=== PATIENT | female | born 1985 | race African-American/Black ===

== ENCOUNTER → 2018-07-28 | Outpatient (CLI) | payer MEDICAID | LOC: LAB.R 08:00 | PROVIDERS: ATTEND Nurse Practitioner Family | DX: Z53.9 Procedure and treatment not carried out, unspecified reason (principal) ==

== ENCOUNTER 2018-08-25 08:00 | Outpatient (CLI) | payer MEDICAID | END 2018-08-25 08:01 | disposition home or self-care (01) | LOC: LAB.R 08:00 | PROVIDERS: ATTEND Nurse Practitioner Family | DX: B35.1 Tinea unguium (principal) ==

== ENCOUNTER 2020-05-26 13:50 | Emergency (ER) | payer MEDICAID ==
[2020-05-26 14:01] VITALS: BP 126/69
--- NOTE | 2020-05-26 14:23 | ED Physician Documentation ---
History of Present Illness - Stated complaint Stated Complaint: BLEEDING - Chief complaint Chief Complaint: General - History obtained from History obtained from: Patient - History of Present Illness Timing: Today Pain level max: 0 Pain level now: 0 - Additonal information Additional information: 35-year-old female states that she is approximately 7 weeks . She states that she started having vaginal bleeding today. No cramping. No pain. No fevers. No vomiting. No diarrhea. 2 para 1. Review of Systems Ten Systems: 10 systems reviewed and negative Constitutional: denies: Fever, Chills Respiratory: denies: Cough GI: denies: Nausea, Vomiting, Diarrhea : denies: Dysuria, Frequency, Hesitancy Skin: denies: Rash Musculoskeletal: denies: Neck pain, Back pain Neurologic: denies: Headache PD PAST MEDICAL HISTORY - Past Medical History Past Medical History: No - Past Surgical History Past Surgical History: No - Allergies Allergies/Adverse Reactions: Allergies Allergy/AdvReac Type Severity Reaction Status Date / Time No Known Drug Allergies Allergy Verified 05/26/20 14:00 - Living Situation Living Situation: reports: With family Living Arrangement: reports: At home - Family History Family history: reports: Non contributory PD ED PE NORMAL - Vitals Vital signs reviewed: Yes - General General: Alert and oriented X 3, No acute distress, Well developed/nourished - HEENT HEENT: Moist mucous membranes - Neck Neck: Supple, no meningeal sign - Cardiac Cardiac: RRR, Strong equal pulses - Respiratory Respiratory: No respiratory distress, Clear bilaterally - Abdomen Abdomen: Soft, Non tender, Non distended - Female Female : Pt declined - Back Back: No spinal TTP - Derm Derm: Warm and dry - Extremities Extremities: No edema, No calf tenderness / cord - Neuro Neuro: Alert and oriented X 3 - Psych Psych: Normal mood, Normal affect Results - Vitals Vitals: Vital Signs - 24 hr 05/26/20 13:59 Temperature 36.6 C Heart Rate 66 Respiratory 20 Rate Blood Pressure 126/69 O2 Saturation 100 Oxygen O2 Source Room air - Labs Labs: Laboratory Tests 05/26/20 05/26/20 05/26/20 14:08 14:18 14:18 WBC 7.5 RBC 4.25 Hgb 12.0 Hct 36.9 L MCV 86.8 MCH 28.2 MCHC 32.5 RDW 13.0 Plt Count 291 MPV 9.7 Neut # (Auto) 4.5 Lymph # (Auto) 2.2 Kaufman # (Auto) 0.4 Eos # (Auto) 0.3 Baso # (Auto) 0.0 Absolute Nucleated RBC 0.00 Nucleated RBC % 0.0 PT 11.6 INR 1.0 APTT 30.8 Sodium Potassium Chloride Carbon Dioxide Anion Gap BUN Creatinine Estimated GFR (MDRD) Glucose Calcium Total Bilirubin AST ALT Alkaline Phosphatase Total Protein Albumin Globulin Albumin/Globulin Ratio Lipase Serum HCG, Qual HCG, Quant Urine Color YELLOW Urine Clarity CLEAR Urine pH 6.0 Ur Specific [place] 1.025 Urine Protein NEGATIVE Urine Glucose (UA) NEGATIVE Urine Ketones TRACE Urine Occult Blood MODERATE H Urine Nitrite NEGATIVE Urine Bilirubin NEGATIVE Urine Urobilinogen 0.2 (NORMAL) Ur Leukocyte Esterase NEGATIVE Urine RBC 6-10 H Urine WBC 0-3 Ur Squamous Epith Cells FEW Squamous Urine Bacteria Few Ur Microscopic Review INDICATED Urine Culture Comments NOT INDICATED Blood Type 05/26/20 05/26/20 05/26/20 14:18 14:18 14:18 WBC RBC Hgb Hct MCV MCH MCHC RDW Plt Count MPV Neut # (Auto) Lymph # (Auto) Kaufman # (Auto) Eos # (Auto) Baso # (Auto) Absolute Nucleated RBC Nucleated RBC % PT INR APTT Sodium 133 L Potassium 3.8 Chloride 98 L Carbon Dioxide 24 Anion Gap 11.0 BUN 16 Creatinine 0.8 Estimated GFR (MDRD) 100 Glucose 92 Calcium 9.3 Total Bilirubin 0.9 AST 18 ALT 11 Alkaline Phosphatase 37 L Total Protein 7.4 Albumin 4.6 Globulin 2.8 Albumin/Globulin Ratio 1.6 Lipase 51 Serum HCG, Qual POSITIVE HCG, Quant Urine Color Urine Clarity Urine pH Ur Specific [place] Urine Protein Urine Glucose (UA) Urine Ketones Urine Occult Blood Urine Nitrite Urine Bilirubin Urine Urobilinogen Ur Leukocyte Esterase Urine RBC Urine WBC Ur Squamous Epith Cells Urine Bacteria Ur Microscopic Review Urine Culture Comments Blood Type O POSITIVE 05/26/20 14:18 WBC RBC Hgb Hct MCV MCH MCHC RDW Plt Count MPV Neut # (Auto) Lymph # (Auto) Kaufman # (Auto) Eos # (Auto) Baso # (Auto) Absolute Nucleated RBC Nucleated RBC % PT INR APTT Sodium Potassium Chloride Carbon Dioxide Anion Gap BUN Creatinine Estimated GFR (MDRD) Glucose Calcium Total Bilirubin AST ALT Alkaline Phosphatase Total Protein Albumin Globulin Albumin/Globulin Ratio Lipase Serum HCG, Qual HCG, Quant 107138.00 Urine Color Urine Clarity Urine pH Ur Specific [place] Urine Protein Urine Glucose (UA) Urine Ketones Urine Occult Blood Urine Nitrite Urine Bilirubin Urine Urobilinogen Ur Leukocyte Esterase Urine RBC Urine WBC Ur Squamous Epith Cells Urine Bacteria Ur Microscopic Review Urine Culture Comments Blood Type - Rads (name of study) OB US Radiology: Prelim report reviewed, EMP read contemporaneously, See rad report (1. Single live intrauterine with ultrasound gestational age of 8 weeks 1 day corresponding to ultrasound BUD of 01/04/2021. 2. Small subchorionic hemorrhage. ) PD MEDICAL DECISION MAKING - ED course Complexity details: reviewed results, re-evaluated patient, considered differential, d/w patient ED course: 35-year-old female with first trimester vaginal bleeding. Appears to have a small subchorionic hemorrhage. She states that her bleeding resolved upon arrival to the emergency department. She has an intrauterine on ultrasound with a heart rate. Patient counseled regarding signs and symptoms for which I believe and urgent re-evaluation would be necessary. Patient with good understanding of and agreement to plan and is comfortable going home at this time This document was made in part using voice recognition software. While efforts are made to proofread this document, sound alike and grammatical errors may o ccur. Departure - Departure Disposition: 01 Home, Self Care Clinical Impression: Vaginal bleeding affecting early Subchorionic hemorrhage in first trimester Qualifiers: Fetus number: single or unspecified fetus Qualified Code(s): O41.8X10 - Other specified disorders of amniotic fluid and membranes, first trimester, not applicable or unspecified Condition: Good Instructions: ED Miscarriage Poss Follow-Up: Vicki Corbett ARNP [Primary Care Provider] - Within 1 week Comments: You appear to have an intrauterine today of approximately 8 weeks and 1 day. You have a small subchorionic hemorrhage, and this is not uncommon early in and may be responsible for the bleeding. Follow-up with your doc tor next week for repeat evaluation. Return if you worsen Discharge Date/Time: 05/26/20 15:15
[2020-05-26 14:24] LABS: BASOPHILS % (AUTO) 0.4 %; EOSINOPHILS # (AUTO) 0.3 10^3/uL (0.0-0.7); EOSINOPHILS % (AUTO) 4.6 %; LYMPHOCYTES # (AUTO) 2.2 10^3/uL (1.5-3.5); LYMPHOCYTES % (AUTO) 29.5 %; MEAN CORPUSCULAR HEMOGLOBIN 28.2 pg (27.0-31.0); MEAN CORPUSCULAR HGB CONC 32.5 g/dL (32.0-36.0); MEAN CORPUSCULAR VOLUME 86.8 fL (81.0-99.0); MEAN PLATELET VOLUME 9.7 fL (7.9-10.8); MONOCYTES # (AUTO) 0.4 10^3/uL (0.0-1.0); MONOCYTES % (AUTO) 5.5 %; NEUTROPHILS # (AUTO) 4.5 10^3/uL (1.5-6.6); NEUTROPHILS % (AUTO) 59.9 %; PLT - PLATELET COUNT 291 10^3/uL (130-450); RED BLOOD COUNT 4.25 10^6/uL (4.20-5.40); WHITE BLOOD COUNT 7.5 x10^3/uL (4.8-10.8)
[2020-05-26 14:30] LABS: BILIRUBIN,URINE NEGATIVE (NEGATIVE); GLUCOSE, URINE (UA) NEGATIVE (NEGATIVE); KETONES,URINE (UA) TRACE mg/dL (NEGATIVE); LEUKOCYTE ESTERASE, URINE NEGATIVE (NEGATIVE); NITRITE,URINE NEGATIVE (NEGATIVE); OCCULT BLOOD,URINE MODERATE (NEGATIVE); PROTEIN,URINE NEGATIVE (NEGATIVE); UROBILINOGEN,URINE 0.2 (NORMAL) E.U./dL (NORMAL)
[2020-05-26 14:32] LABS: CLARITY,URINE CLEAR (CLEAR)
[2020-05-26 14:33] LABS: PT - PROTHROMBIN TIME 11.6 secs (9.9-12.6)
[2020-05-26 14:37] LABS: ALBUMIN 4.6 g/dL (3.2-5.5); ALBUMIN/GLOBULIN RATIO 1.6 (1.0-2.2); BILIRUBIN,TOTAL 0.9 mg/dL (0.2-1.0); CALCIUM 9.3 mg/dL (8.5-10.3); CREATININE 0.8 mg/dL (0.4-1.0); TOTAL PROTEIN 7.4 g/dL (6.7-8.2)
[2020-05-26 14:41] LABS: PARTIAL THROMBOPLASTIN TIME 30.8 secs (24.9-33.3)
[2020-05-26 14:42] LABS: BACTERIA,URINE Few /HPF (None Seen); SQUAMOUS EPITHELIAL CELL,UR FEW Squamous (<= Few)
[2020-05-26 15:06] LABS: HCG,QUALITATIVE BLOOD POSITIVE
--- NOTE | 2020-05-26 15:15 | Ultrasound Report ---
PROCEDURE: OB First Trimester INDICATIONS: 7 weeks preg, vag bleed OUTSIDE/PRIOR DATING DATA: Last menstrual period (LMP): 04/01/2020. LMP-based estimated date of delivery (BUD): 01/06/2021. First dating scan (date and location): 05/26/2020. Estimated date of delivery (BUD) from first dating scan: 01/04/2021. TECHNIQUE: Real-time scanning was performed of the fetus and maternal pelvic organs, with image documentation. COMPARISON: None FINDINGS: Embryo: Single live intrauterine is identified with crown-rump length measuring 1.7 cm cor responding to 8 weeks 1 day. Heart rate is present at 153 bpm. There is a focus of apparent subchorio rickie hemorrhage superior to the gestational sac measuring 16 x 3 x 19 mm. Measurement variability in dating: +/- 4 weeks by LMP, +/- 7 days by mean sac diameter (use before 6 weeks gestation if crown-rump length not able to be measured), +/- 5 days by crown-rump length (6-12 weeks gestation). Maternal organs: Ovaries demonstrate a left corpus luteal cyst.. Limited images through the kidneys demonstrate no hydronephrosis. IMPRESSION: 1. Single live intrauterine with ultrasound gestational age of 8 weeks 1 day corresponding to ultrasound BUD of 01/04/2021. 2. Small subchorionic hemorrhage. Reviewed by: Kari Culver MD on 05/26/2020 3:14 PM PDT Approved by: Kari Culver MD on 05/26/2020 3:14 PM PDT Station ID: [id number]
== END 2020-05-26 15:15 | disposition home or self-care (01) ==
LOC: ED 13:50
DX: O20.9 Hemorrhage in early pregnancy, unspecified (principal); O41.8X10 Other specified disorders of amniotic fluid and membranes, first trimester, not applicable or unspecified; Z3A.08 8 weeks gestation of pregnancy
CPT/HCPCS: 36415; 76801; 80053; 81001; 81003; 83690; 84702; 84703; 85025; 85610; 85730; 86900; 86901; 87086; 99284; 99285

== ENCOUNTER 2020-05-31 17:46 | Outpatient (CLI) | payer MEDICAID | END 2020-05-31 17:47 | disposition home or self-care (01) | LOC: LAB.S 17:46 | PROVIDERS: ATTEND Registered Nurse | DX: O20.9 Hemorrhage in early pregnancy, unspecified (principal); Z3A.00 Weeks of gestation of pregnancy not specified | CPT/HCPCS: 36415; 84702 ==

== ENCOUNTER 2020-12-23 15:50 | Inpatient (IN) | payer OTHER, MEDICAID ==
[2020-12-23] MEDS ORDERED: OXYTOCIN/SODIUM CHLORIDE 500 ML IV PRN (16:20)
[2020-12-23] MEDS ORDERED: miSOPROStoL 200 MCG TABLET BC PRN (16:20)
[2020-12-23] MEDS ORDERED: OXYTOCIN 10 UNIT/ML VIAL IM PRN (16:20)
[2020-12-23] MEDS ORDERED: CARBOPROST TROMETHAMINE 250 MCG/ML AMP IM PRN (16:20)
[2020-12-23] MEDS ORDERED: TRANEXAMIC ACID IN NACL 1,000 MG/100 ML BAG IV PRN (16:20)
[2020-12-23] MEDS ORDERED: SODIUM CHLORIDE FLUSH 0.9% 10 ML SYRINGE IVP PRN (16:20)
[2020-12-23] MEDS ORDERED: LIDOCAINE-MPF 1% 30 ML VIAL ID PRN (16:20)
[2020-12-23] MEDS ORDERED: METHYLERGONOVINE 0.2 MG/ML VIAL IM PRN (16:20)
[2020-12-23] MEDS ORDERED: fentaNYL 100 MCG/2 ML VIAL IVP SCH (16:31)
[2020-12-23] MEDS ORDERED: ROPIVACAINE 0.2% 200 MG/100 ML BAG EP ONE (16:41)
[2020-12-23] MEDS ORDERED: ROPIVACAINE 0.2% 200 MG/100 ML BAG EP PRN (16:45)
[2020-12-23 16:48] LABS: BASOPHILS % (AUTO) 0.4 %; EOSINOPHILS # (AUTO) 0.2 10^3/uL (0.0-0.7); EOSINOPHILS % (AUTO) 2.7 %; HGB - HEMOGLOBIN 11.7 g/dL (12.0-16.0); LYMPHOCYTES # (AUTO) 2.4 10^3/uL (1.5-3.5); LYMPHOCYTES % (AUTO) 28.8 %; MEAN CORPUSCULAR HEMOGLOBIN 28.3 pg (27.0-31.0); MEAN CORPUSCULAR HGB CONC 31.6 g/dL (32.0-36.0); MEAN CORPUSCULAR VOLUME 89.4 fL (81.0-99.0); MONOCYTES # (AUTO) 0.5 10^3/uL (0.0-1.0); NEUTROPHILS % (AUTO) 61.5 %; PLT - PLATELET COUNT 214 10^3/uL (130-450); RED BLOOD COUNT 4.14 10^6/uL (4.20-5.40); RED CELL DISTRIBUTION WIDTH 13.7 % (12.0-15.0); WHITE BLOOD COUNT 8.2 x10^3/uL (4.8-10.8)
[2020-12-23] MEDS ORDERED: LACTATED RINGERS 1,000 ML IV SCH (17:00)
[2020-12-23] MEDS ORDERED: SODIUM CHLORIDE FLUSH 0.9% 10 ML SYRINGE IVP SCH (17:00)
--- NOTE | 2020-12-23 17:43 | DELIVERY NOTE ---
Delivery Note - Labor Labor: positive: Spontaneous - Delivery Method Delivery Method: positive: Spontaneous vaginal delivery - Presentation Presentation: positive: Vertex - Nuchal Cord Nuchal Cord: positive: Present (Tight; clamped and cut on perineum) - Amniotic Fluid Description Amniotic Fluid Description: positive: Clear - Episiotomy Type Episiotomy Type: positive: None - Laceration Laceration: positive: Labial (Right minora), Other (Just below clitoris at 6:00 not involving labia) - Suture Suture Type: positive: Vicryl Suture Size: positive: 3-0 - Delivery Outcome Delivery Outcome: positive: Livebirth - Custar Custar: positive: Placed in direct skin contact with mother, Suctioned, Bulb syringe, Stimulated, Warmed, [place] used, Warmer used Custar sex: positive: Female - Cord Cord: positive: 3 vessels - Placenta Placenta: positive: Intact, Spontaneous - Estimated Blood Loss Estimated Blood Loss (in cc): 50 - Post Delivery Events Post Delivery Events: positive: No post delivery events - Delivery Comments (Free Text/Narrative) Delivery Comments (Free Text/Narrative): Patient arrived at 5cm, had had care at [facility] in [place]. Progressed quickly to complete while she was getting her epidural. SROM happened while the baby was . Tight nuchal cord cut on the perineum. Baby was placed on mom's abdomen for initial evaluation--tone remained poor and so she was brought to the warmer. Improved then without needing PPV. Baby with physical stigma of possible Down Syndrome--macroglossia and classic facial features are present. Peds called in and they are evaluating baby now. Placenta delivered without problems. Fundus firm and 1cm below the umbilicus. Will obtain pt's records from [facility]. Anticipate routine maternal care.
[2020-12-23] MEDS ORDERED: WITCH HAZEL/GLYCERIN 1 PAD TOP PRN (17:45)
[2020-12-23] MEDS ORDERED: diphenhydrAMINE 25 MG CAPSULE PO PRN (17:45)
[2020-12-23] MEDS ORDERED: ONDANSETRON ODT 4 MG TABLET TL PRN (17:45)
[2020-12-23] MEDS ORDERED: HYDROCORTISONE 1% CREAM 28 GM TUBE PR PRN (17:45)
[2020-12-23] MEDS ORDERED: ONDANSETRON 4 MG/2 ML VIAL IVP PRN ×2 (17:45→19:58)
[2020-12-23] MEDS ORDERED: SIMETHICONE CHEW 80 MG TABLET PO PRN (17:45)
--- NOTE | 2020-12-23 17:51 | HISTORY & PHYSICAL EXAMINATION ---
Admit History - Visit Reason Visit Reason: Contractions - Other Maternal History Other Maternal History: HPI: contractions started this morning. Thought about going back to [place] but didn't think that she would make it. [place] her Mother but she lives in [place] and all care has been with Dr. Guaman. 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 FH: no genetic issues, no anesthesia complications OB: records currently not available. BUD 01/03/21 per pt. Uncomplicated pregnancies per pt. Meds/Allgy - Allergies Allergies/Adverse Reactions: Allergies Allergy/AdvReac Type Severity Reaction Status Date / Time No Known Drug Allergies Allergy Verified 05/26/20 14:00 Physical - Other Notes Labor Progress Note/Additional Text: AVSS FHT 110 baseline, mod LTV, no accel, no decel SVE complete, BBOW at the introitus, vertex Plan for Labor - Plan For Labor I expect patient to be DC'd or transferred within 96 hours.: Yes Plan for Labor: 35yo at 38w3d by pt's reported BUD. Came to hospital at 5cm, received an epidural and delivered shortly after that. Mother is doing well but her baby has surprise Down Syndrome. Had care elsewhere. --Obtain records --Anticipate routine care --Support and education planned for baby's condition.
--- NOTE | 2020-12-23 19:57 | ANESTHESIA PROCEDURE NOTE ---
Anesthesia Epidural Template - Patient Report Patient Reports: positive: Pain controlled - Plan Plan: positive: Continue current management
[2020-12-23] MEDS ORDERED: NALBUPHINE 10 MG/ML AMP IVP PRN (19:58)
[2020-12-23] MEDS ORDERED: NALOXONE 0.4 MG/ML VIAL IVP PRN (19:58)
[2020-12-23] MEDS ORDERED: ePHEDrine 50 MG/ML VIAL IVP PRN (19:58)
[2020-12-23] MEDS ORDERED: METOCLOPRAMIDE 10 MG/2 ML VIAL IVP PRN (19:58)
[2020-12-23] MEDS ORDERED: diphenhydrAMINE INJ 50 MG/ML VIAL IVP PRN (19:58)
[2020-12-23] MEDS: ACETAMINOPHEN 500 MG TABLET PO SCH (20:42)
[2020-12-23] MEDS: IBUPROFEN 600 MG TABLET PO SCH (20:43)
[2020-12-23] MEDS: DOCUSATE SODIUM 100 MG CAPSULE PO SCH (20:43)
[2020-12-24] MEDS: IBUPROFEN 600 MG TABLET PO SCH ×6 (02:39→22:30)
[2020-12-24] MEDS: ACETAMINOPHEN 500 MG TABLET PO SCH ×3 (04:40→19:15)
[2020-12-24] MEDS: DOCUSATE SODIUM 100 MG CAPSULE PO SCH (08:45)
--- NOTE | 2020-12-24 17:32 | PROVIDER PROGRESS NOTE ---
Subjective - Subjective Subjective: S: feeling OK, no problems. Moderate cramping. Breasts oK. Eat, ambulate, urinate OK. No heavy bleeding. O: AVSS Alert, smiling, NAD Cuddling baby Abd soft, nt/nd Fundus firm, 2cm below U A/P: 35yo P2 PPD #1 s/p at term, uncomplicated maternal course -- care elsewhere, labs normal except for genetic screening and rub non- immune. Plan MMR --Pt had T21 diagnosed during , genetic counseling and education had been done. She relates that she didn't report this history yesterday because she was in so much pain and wasn't thinking well. Has f/u with genetics in [place] and has support. Objective - Vital Signs/Intake & Output Vital Signs: Vital Signs x48h Temp Pulse Resp BP BP Pulse Ox 12/24/20 16:10 98.8 F 74 18 132/74 H 97 12/24/20 11:40 98.6 F 71 18 118/77 100 Intake & Output: Intake & Output 12/21/20 12/22/20 12/23/20 12/24/20 23:59 23:59 23:59 23:59 Output Total 400 150 Balance -400 -150 - Lab Results Fish Bones: 12/23/20 16:40
[2020-12-25] MEDS: ACETAMINOPHEN 500 MG TABLET PO SCH ×2 (05:19→12:04)
[2020-12-25] MEDS: IBUPROFEN 600 MG TABLET PO SCH ×2 (05:21→12:04)
[2020-12-25] MEDS ORDERED: MEASLES,MUMPS & RUBELLA VACC 0.5 ML VIAL SUBQ ONE (08:17)
--- NOTE | 2020-12-25 08:29 | Discharge Plan ---
Discharge Plan Problem Reviewed?: Yes Disposition: Home, Self Care Condition: Good Prescriptions: Acetaminophen [Acetaminophen Extra Strength] 1,000 mg PO Q6H PRN #45 tab PRN Reason: Pain Docusate Sodium 100Mg Capsule [Colace 100Mg Capsule] 100 mg PO BID PRN #30 cap PRN Reason: to soften stool Ibuprofen [Motrin] 600 mg PO Q6H PRN #30 tab PRN Reason: Pain Diet: Regular Shower Restrictions: No Driving Restrictions: No Additional Instructions or Follow Up instructions: Nothing in the vagina for [address] Guaman this week in [place] as scheduled already. No Smoking: If you smoke, Please STOP! Call for help.
[2020-12-25 08:51] VITALS: BP 110/65
--- NOTE | 2020-12-25 09:11 | DISCHARGE SUMMARY ---
Physician: Bertha Norton MD DATE OF ADMISSION: 12/23/2020 DATE OF DISCHARGE: 12/25/2020 ADMISSION DIAGNOSIS: Spontaneous active labor at term. DISCHARGE DIAGNOSES: 1. Status post vaginal delivery at term. 2. Rubella nonimmune. 3. Delivered an with Down syndrome. PROCEDURE: On 12/23/2020, spontaneous vaginal delivery of a liveborn female. EBL was 50 mL. She had a right labial and a periclitoral laceration that were repaired. HOSPITAL COURSE: Patient was admitted in active spontaneous labor and delivered about an hour after arrival. She [facility]. At delivery, her baby was diagnosed with a stigmata of Down syndrome, and she was notified of this finding. Once her records were obtained, it was found that she was aware of this antepartum and had received genetic counseling. She also receiv ed a normal echo. She was bonding with her baby well and has plans to follow up with her heraclio ic counseling back in [place]. Otherwise, her course was unremarkable. She was requesting discharge home. She was eatin g, ambulating, urinating without difficulties. She did not have any heavy bleeding or severe pain. Her mood was good. She had chosen not to breastfeed. PHYSICAL EXAM: VITAL SIGNS: She was afebrile with normal vital signs. GENERAL: Alert and smiling, in no apparent distress, cuddling her baby. ABDOMEN: Soft, nontender, nondistended. Fundus firm, nontender, and at the umbilicus. DISCHARGE MEDICATIONS: Ibuprofen, Tylenol, and Colace. An MMR vaccination was given to the patient prior to discharge. FOLLOWUP: Follow up with her primary OB, Dr. Guaman, this week in [place]. PRECAUTIONS: Routine precautions given. DISPOSITION: Home. CONDITION: Good. TD: 12/25/2020 08:34
[2020-12-25] MEDS: DOCUSATE SODIUM 100 MG CAPSULE PO SCH (12:04)
--- NOTE | 2020-12-25 19:09 | Labor Flowsheet ---
Labor Flowsheet Datetime Report Generated by CPN: 12/25/2020 19:09 Datetime: 12/25/2020 08:05 VITAL SIGNS NBP Sys/Cassi/Mean (mmHg): 110 : 65 : 75 Pulse: 74 SpO2 (%): 96 Datetime: 12/23/2020 19:30 Anesthesia Comments: epidural catheter removed and was intact Datetime: 12/23/2020 18:16 VAGINAL EXAM Membranes Ruptured Date/Time: 12/23/2020 17:00 Membranes Rupture Method: Spontaneous Amniotic Fluid Color: Clear Amniotic Fluid Amount: Moderate Amniotic Fluid Odor: Normal Datetime: 12/23/2020 18:15 Stage of : Recovery Datetime: 12/23/2020 18:00 Respirations: 16 Datetime: 12/23/2020 17:45 Temperature Route: Oral Datetime: 12/23/2020 17:03 UTERINE ACTIVITY Monitor Mode: External Frequency (min): 1.5-3.5 Quality: Strong Duration (sec): 60-90 Pattern: Normal: <= 5 Contractions in 10 Minutes Resting Tone (Palpate): Relaxed ASSESSMENT A Monitor Mode: Human Resources Talent Manager Interventions for FHR: Ultrasound Adjusted FHR Baseline Rate : 125 Variability: Moderate 6-25 bpm Accelerations: None Decelerations: Prolonged Category: Category II Comments: Prolong decel with angela of 90 with descent of head and SROM. PATIENT CARE Oxygen Method: Room Air Datetime: 12/23/2020 16:45 Epidural Procedure: Loading Dose Datetime: 12/23/2020 16:42 Epidural Positioning: Sitting Datetime: 12/23/2020 16:36 PROCEDURE TIME OUT Procedure Verify: Correct Patient Identity; Correct Side and Site are Marked; Accurate Procedure Co nsent Form; Agreement on Procedure to be Done; Correct Patient Position ANESTHESIA Anesthesia Plans: Epidural Datetime: 12/23/2020 16:34 MEDICATIONS Analgesics/Sedatives: Fentanyl ([facility]) @ 100
== END 2020-12-25 14:30 | disposition home or self-care (01) | DRG 807 ==
LOC: WFO 15:50 → FBP 15:53 → WFO 16:19 → FBP 16:20
PROVIDERS: ADMIT Obstetrics & Gynecology; ATTEND Obstetrics & Gynecology
PROC: 10E0XZZ Delivery of Products of Conception, External Approach (ICD-10-PCS; principal; 2020-12-23)
PROC: 0HQ9XZZ Repair Perineum Skin, External Approach (ICD-10-PCS; 2020-12-23)
DX: O69.1XX0 Labor and delivery complicated by cord around neck, with compression, not applicable or unspecified (principal); Z37.0 Single live birth; O70.0 First degree perineal laceration during delivery; O35.1XX0 Maternal care for (suspected) chromosomal abnormality in fetus, not applicable or unspecified; Z3A.38 38 weeks gestation of pregnancy; Z20.822 Contact with and (suspected) exposure to COVID-19
CPT/HCPCS: 36415; 85025; 87635; 99213; A9270; J7120

== ENCOUNTER 2022-08-15 15:20 | Outpatient (CLI) | payer MEDICAID ==
[2022-08-15 16:03] LABS: HCT - HEMATOCRIT 30.8 % (37.0-47.0); MEAN CORPUSCULAR HEMOGLOBIN 28.6 pg (27.0-31.0); MEAN CORPUSCULAR HGB CONC 32.5 g/dL (32.0-36.0); MEAN PLATELET VOLUME 9.7 fL (7.9-10.8); RED BLOOD COUNT 3.5 10^6/uL (4.20-5.40); RED CELL DISTRIBUTION WIDTH 13.2 % (12.0-15.0); WHITE BLOOD COUNT 7.2 x10^3/uL (4.8-10.8)
== END 2022-08-15 15:21 | disposition home or self-care (01) ==
LOC: LAB 15:20
PROVIDERS: ATTEND Obstetrics & Gynecology
DX: Z36.89 Encounter for other specified antenatal screening (principal)
CPT/HCPCS: 36415; 82950; 85027; 86787; 86850

== ENCOUNTER 2022-09-12 15:33 | Outpatient (CLI) | payer MEDICAID ==
[2022-09-12 15:54] LABS: ABSOLUTE RETICS # AUTO 0.082 10^6/uL (0.020-0.110); RED BLOOD COUNT 3.63 10^6/uL (4.20-5.40); RETICULOCYTE COUNT % (AUTO) 2.27 % (0.5-2.3)
[2022-09-13 16:08] LABS: FOLATE HEMOLYSATE 402.7 ng/mL (Not Estab.); FOLATE RBC 1299 ng/mL (>498)
[2022-09-17 12:07] LABS: PATHOLOGIST SLIDE COMMENTS SEE SEPARATE REPORT
== END 2022-09-12 15:34 | disposition home or self-care (01) ==
LOC: LAB 15:33
PROVIDERS: ATTEND Obstetrics & Gynecology
DX: O99.012 Anemia complicating pregnancy, second trimester (principal); D64.9 Anemia, unspecified
CPT/HCPCS: 36415; 82728; 82747; 83921; 85014; 85045

== ENCOUNTER 2022-10-16 13:29 | Outpatient (CLI) | payer MEDICAID ==
--- NOTE | 2022-10-16 20:04 | Ultrasound Report ---
PROCEDURE: OB Detailed Eval INDICATIONS: SUPERVISION OF OUTSIDE/PRIOR DATING DATA: Last menstrual period (LMP): 02/28/2022. LMP-based estimated date of delivery (BUD): 12/05/2022. First dating scan (date and location): 06/20/2022. Estimated date of delivery (BUD) from first dating scan: 12/02/2022. TECHNIQUE: Real-time scanning was performed of the fetus, with image documentation and biometric measurements. Endovaginal scanning: Not performed COMPARISON: Report from prior obstetrical ultrasound at [facility] 06/20/22. Images from that exam are not available for comparison. FINDINGS: General: A single living intrauterine gestation is present. Presentation: Cephalic Placenta: Placental position is posterior, without previa. Amniotic fluid index: 17.1 cm, normal for gestational age. heart rate: 130 beats per minute. Maternal cervical canal: 4.0 cm long; normal length is 2.5 cm or more. biometrics: Biparietal diameter: 8.6 cm, 34 weeks 4 days Head circumference: 30.7 cm, 34 weeks 1 day Abdominal circumference: 28.8 cm, 32 weeks 5 days Femur length: 6.67 m, 33 weeks 5 days Composite gestational age from present scan: 33 weeks 6 days Estimated weight and percentile: 2181 g, 44th percentile Measurement variability in biometric dating: +/- 10 days from 12-20 weeks gestation, +/- 2 weeks from 20-30 weeks gestation, +/- 3 weeks at 30 weeks gestation or later. Anatomic survey: Neuro: Ventricles are normal at less than 10 mm. Cisterna magna is normal at 3-11 mm. Cerebellum i s normal in size and morphology. Face: Nose and lips, facial profile are normal. Spine: No evidence for spina bifida. Heart: 4-chambered heart is present, with normal ventricular outflow tracts. Diaphragm: Diaphragm is intact. Stomach: Left-sided stomach is present. Kidneys: No hydronephrosis. Normal is less than 5 mm in 2nd trimester, less than 7 mm in 3rd trimester. Cord: 3 vessel cord has orthotopic insertion. Bladder: Normal in size. Extremities: All 4 extremities are visualized. IMPRESSION: 1. Single living intrauterine in cephalic presentation. 2. growth/estimated weight within normal limits. 3. Visualized anatomy is normal. Reviewed by: Jarek Garcia MD on 10/16/2022 7:03 PM [facility] Approved by: Jarek Garcia MD on 10/16/2022 7:03 PM [facility] Station ID: [id number]
== END 2022-10-16 13:30 | disposition home or self-care (01) ==
LOC: DI 13:29
PROVIDERS: ATTEND Obstetrics & Gynecology
DX: O09.522 Supervision of elderly multigravida, second trimester (principal); Z3A.33 33 weeks gestation of pregnancy